=== PATIENT | female | born 1940 | race Caucasian/White ===

== ENCOUNTER 2018-05-14 10:04 | Outpatient (CLI) | payer MEDICARE ==
[2018-05-14 15:16] LABS: #Basophils 0.1 thou/uL (0.0-0.2); #Eosinphils 1.4 thou/uL (0.0-0.7); #Lymphocytes 2.2 thou/uL (1.20-3.40); #Monocytes 0.5 thou/uL (0.11-0.59); #Neutrophils 6.2 thou/uL (1.40-6.50); %Basophils 0.7 % (0.0-1.0); %Eosinophils 13.8 % (0.0-10.0); %Lymphocytes 20.9 % (21.0-51.0); %Monocytes 4.8 % (0.0-10.0); %Neutrophils 59.8 % (42.0-75.0); Hemoglobin 15.3 g/dL (12.0-16.0); Mean Corpuscular HGB CONC 33.6 g/dL (32.0-36.0); Mean Corpuscular Hemoglobin 32.1 pg (27.0-31.0); Mean Corpuscular Volume 95.6 fL (78.0-98.0); Mean Platelet Volume 8.4 fL (7.4-10.4); Platelet Count 193 thou/uL (130-400); RBC Distribution Width 12.2 % (11.5-14.5); Red Blood Cell (RBC) Count 4.76 mill/uL (4.20-5.40); White Blood Cell (WBC) Count 10.4 thou/uL (4.8-10.8)
[2018-05-14 15:23] LABS: Prothrombin Time 13.7 SEC (12.0-14.7)
[2018-05-14 15:29] LABS: Bilirubin Negative (Negative); Blood, Urine Small (Negative); Clarity CLOUDY (Clear); Glucose, Urine (Dipstick) Negative (Negative); Leukocyte Large (Negative); Nitrite Negative (Negative); Protein, Urine (Dipstick) Negative (Neg-Trace); Specific Gravity, Urine 1.004 (1.002-1.036); Urobilinogen 0.2 mg/dL (0.2-1.0); pH, Urine 6.5 (5.0-9.0)
[2018-05-14 15:32] LABS: Bacteria/HPF 1+ HPF (None Seen); Hyaline Casts/LPF 4-6 HYALINE CAST LPF (0-3 Hyaline); Pathc Cast-AUWi Flag 1.22 (0-2.49)
[2018-05-14 15:37] LABS: ALT (SGPT) 20 U/L (8-55); AST (SGOT) 30 U/L (5-34); Albumin 4.1 g/dL (3.4-4.8); Alkaline Phosphatase 63 U/L (40-150); Anion Gap 12 mmol/L (10-20); BUN (Urea Nitrogen) 11 mg/dL (9.8-20.1); Bilirubin, Total 0.9 mg/dL (0.2-1.2); Calc. Creatinine Clearance 0 mL/min (70-130); Calcium 10.9 mg/dL (7.8-10.44); Carbon Dioxide 26 mmol/L (23-31); Cardiac Risk 2.7 (Less than 4.5); Chloride 102 mmol/L (98-107); Cholesterol 112 mg/dl (< 200 Desired); Estimated GFR-MDRD 48; Globulin 3.1 g/dL (2.4-3.5); Glucose 88 mg/dL (83-110); HDL Cholesterol 41 mg/dL (>60 Neg Risk); LDL Cholesterol, Calculated 47 mg/dL; Potassium 3.9 mmol/L (3.5-5.1); Protein, Total 7.2 g/dL (6.0-8.3); Sodium 136 mmol/L (136-145); Triglycerides 122 mg/dL (Less than 150)
--- NOTE | 2018-05-14 15:57 | EKG ---
Test Reason : Blood Pressure : / mmHG Vent. Rate : 069 BPM Atrial Rate : 069 BPM P-R Int : 164 ms QRS Dur : 084 ms QT Int : 360 ms P-R-T Axes : 027 007 020 degrees QTc Int : 385 ms Normal sinus rhythm Normal ECG Confirmed by ANTONIO STANFORD ([id number]) on 05/14/2018 3:56:33 PM Referred By: IERO Confirmed By:ANTONIO STANFORD
[2018-05-14 16:14] LABS: Renal Epithelial 0-3 HPF (0-3); WBC/HPF 21-50 HPF (0-3)
== END 2018-05-14 10:05 | disposition home or self-care (01) ==
LOC: LABBT 10:04
PROVIDERS: ATTEND Orthopaedic Surgery
DX: Z01.818 Encounter for other preprocedural examination (principal); Z96.651 Presence of right artificial knee joint; E03.9 Hypothyroidism, unspecified; E78.00 Pure hypercholesterolemia, unspecified
CPT/HCPCS: 80053; 80061; 81001; 84443; 85025; 85610; 87081; 93005; 93010

== ENCOUNTER 2018-05-25 05:34 | Inpatient (IN) | payer MEDICARE ==
[2018-05-14 13:15] VITALS: BMI 39.3
[2018-05-25] MEDS ORDERED: Tranexamic Acid 1,000 MG/10 ML VIAL ONE ×2 (05:56→09:18)
[2018-05-25] MEDS ORDERED: Sodium Chloride 0.9% 100 ML ONE (05:56)
[2018-05-25] MEDS ORDERED: Clindamycin/D5W 600 mg/50 ml Premix Bag ONE (05:56)
[2018-05-25] MEDS ORDERED: Vancomycin HCl 1.5 GM in Sodium Chloride 0.9% 250 ML 300 ML IVPB SCH ×2 (06:00→18:00)
[2018-05-25] MEDS ORDERED: Lidocaine 1% (PF) 30 ML VIAL ONE (06:28)
[2018-05-25] MEDS ORDERED: Midazolam HCl 2 mg/2 ml Vial ONE (06:28)
[2018-05-25] MEDS ORDERED: Fentanyl 100 MCG/2 ML VIAL ONE ×4 (06:28→09:56)
[2018-05-25] MEDS ORDERED: Bupivacaine PF 0.5% 30 ML VIAL ONE (06:43)
[2018-05-25] MEDS ORDERED: Ondansetron PF 4 MG/2 ML Vial IVP PRN (07:13)
[2018-05-25] MEDS ORDERED: traMADol HCl 50 MG TAB PO PRN ×2 (07:13→07:19)
[2018-05-25] MEDS ORDERED: Zolpidem Tartrate 5 MG TAB PO PRN ×2 (07:13→07:19)
[2018-05-25] MEDS ORDERED: Promethazine HCl 25 MG/ML VIAL IM PRN ×3 (07:13→09:08)
[2018-05-25] MEDS ORDERED: Fentanyl 100 MCG/2 ML VIAL SLOW IVP PRN ×2 (07:18→07:19)
[2018-05-25] MEDS ORDERED: diphenhydrAMINE 25 MG CAP PO PRN (07:19)
[2018-05-25 08:42] LABS: Bilirubin Negative (Negative); Blood, Urine Negative (Negative); Clarity CLEAR (Clear); Glucose, Urine (Dipstick) Negative (Negative); Leukocyte Negative (Negative); Nitrite Negative (Negative); Protein, Urine (Dipstick) Negative (Neg-Trace); Specific Gravity, Urine 1.009 (1.002-1.036); Urobilinogen 0.2 mg/dL (0.2-1.0); pH, Urine 6.5 (5.0-9.0)
[2018-05-25 08:44] LABS: Urine Culture Reflex No No
[2018-05-25] MEDS ORDERED: Promethazine HCl 25 MG/ML VIAL SLOW IVP PRN (09:08)
[2018-05-25] MEDS ORDERED: Ondansetron HCl/PF 4 MG/2 ML Vial IVP PRN (09:08)
[2018-05-25] MEDS ORDERED: HYDROmorphone 2 MG/ML VIAL SLOW IVP PRN (09:08)
[2018-05-25] MEDS ORDERED: HYDROmorphone 2 MG/ML VIAL ONE (09:18)
[2018-05-25] MEDS ORDERED: Scopolamine 1.5 mg/72 hour Patch ONE (09:50)
[2018-05-25] MEDS ORDERED: Ondansetron PF 4 MG/2 ML Vial ONE (09:51)
[2018-05-25] MEDS ORDERED: PHENYLEPHRINE-NS 100 MCG/ML 10 ML SYRINGE ONE (09:51)
[2018-05-25] MEDS ORDERED: ePHEDrine 50 MG/ML VIAL ONE (09:51)
[2018-05-25] MEDS ORDERED: Calcium Chloride 1 GM/10 ML Abboject SYRINGE ONE (09:51)
[2018-05-25] MEDS ORDERED: PROPOFOL 200 MG/20 ML VIAL ONE (09:51)
[2018-05-25] MEDS ORDERED: Ropivacaine 0.5% HCl/PF (150 MG/30 ML VIAL) ONE (10:38)
[2018-05-25] MEDS ORDERED: Ropivacaine 0.2% HCl/PF (40 MG/20 ML VIAL) ONE (10:38)
--- NOTE | 2018-05-25 11:04 | OP ---
DATE OF PROCEDURE: 05/25/2018 PREOPERATIVE DIAGNOSIS: Right knee osteoarthritis. POSTOPERATIVE DIAGNOSIS: Right knee osteoarthritis. PROCEDURE PERFORMED: Right total knee replacement using Hi-Midia pinless navigation. CALENDER WIND UP TENDER: Mike Zapien PA-C. BLOOD LOSS: Minimal. COMPLICATIONS: None. ANESTHESIA: She had a general anesthetic as well as a preoperative block. DISPOSITION: She did go to recovery room in stable condition. IMPLANTS: There were no complications. IMPLANTS: To the right knee, triathlon total knee system, the femur size 3 cruciate retaining, the tibial base plate was a size 3 primary base plate, plastic was a 3 x 9 mm CS X3 plastic, and the patella was A29 x 9 X3 patella. INDICATIONS: Alix is a 77-year-old, long-term patient of mine, who has been dealing with knee arthritis for years and at this time has failed her nonoperative treatment. At this time, she wished to have her knee replaced. PROCEDURE IN DETAIL: After all appropriate consent forms were explained and signed, the patient was taken back to the operating room and at this time was given general anesthetic. Once the level of anesthesia was appropriate, a well-padded tourniquet was placed on the right leg, and the leg was then prepped and draped in standard surgical fashion. The limb was exsanguinated and tourniquet taken up to 300 mmHg. Midline incision was made with a 10 blade down through the skin and subcutaneous tissue. Bovie electrocautery was used to coagulate any brisk venous bleeding. A new blade was used to make a medial parapatellar arthrotomy. Small subperiosteal release was performed medially and excess fat pad was removed. The knee was flexed up to gain access to the femur. The femur was navigated and distal femoral resection was made. Epicondylar access was used to align our sizing jig and this was pinned in place. We sized our femur to be a 3, cruciate retaining. 4:1 cutting block was applied and pinned. Anterior and posterior chamfer cuts were then made. We navigated out our proximal tibia and made our proximal tibial resection. Spreaders were used to remove any posterior osteophytes off the back of the femur as well as remaining meniscal tissue. A long alignment jr was then used to achieve correct rotation of our tibial baseplate and a size 3 primary baseplate was chosen. This was pinned in place. We trialed the polyethylene and a 3 x 9 mm CS X3 plastic polyethylene gave us full extension and good stability throughout range of motion. Two towel clips and a saw were used to cut our patella. Three lug nuts were drilled and A29 x 9 X3 patella was trialed which sat nicely in the trochlear groove. We then drilled our femur and punched our tibia. All components were removed. The knee was thoroughly irrigated and dried. Cement was mixed into the cement gun on the back table. Components were then placed. The knee was held out in full extension until the cement had dried. All excess bone cement was removed. Multiple #2 Vicryl stitches as well as a Quill were used to close our extensor mechanism. 0 Quill followed by a running Monoderm was then used to close the skin. Surgicel glue was then used on the skin. Once this had dried, soft tissue dressing was applied to the limb, tourniquet was let down, and the toes pinked up nicely. The patient was then awakened and taken to the recovery room in stable condition. All counts were correct at the end of the case. The patient did receive preoperative IV antibiotics. The patient was injected with Exparel for postoperative pain relief. Job ID: [id number]
[2018-05-25] MEDS: Loratadine 10 MG TAB PO SCH (11:48)
[2018-05-25] MEDS: Multivitamin W/ Minerals 1 TAB PO SCH (11:48)
[2018-05-25] MEDS: Estradiol 1 MG TAB PO SCH (11:48)
[2018-05-25] MEDS: Aspirin 81 mg Enteric Coated Tablet PO SCH ×2 (11:48→19:57)
[2018-05-25] MEDS: Ubidecarenone 50 MG CAP PO SCH (11:49)
[2018-05-25] MEDS: Thyroid 30 MG TAB PO SCH (11:49)
[2018-05-25] MEDS ORDERED: Ketorolac Tromethamine 30 MG/ML VIAL IVP SCH (12:00)
[2018-05-25] MEDS: Clindamycin/D5W 900 MG in Premix Bag 1 BAG IVPB SCH ×2 (13:22→19:57)
[2018-05-25] MEDS: HYDROmorphone 2 MG TAB PO PRN ×2 (14:32→18:38)
[2018-05-25] MEDS: Sodium Chloride 0.9% 1,000 ML IV SCH ×2 (15:42→16:51)
--- NOTE | 2018-05-25 15:54 | PDOC.PN ---
- Subjective Encounter Start Date: 05/25/18 Encounter Start Time: 15:52 Subjective: s/p R TKR.working w PT.pain in operated knee -: no N/Vno SOB/palpitations /CP - Objective MAR Reviewed: Yes Vital Signs & Weight: Vital Signs (12 hours) Temp Pulse Resp BP Pulse Ox 05/25/18 11:29 97.5 F L 83 18 130/70 95 Weight Weight 198 lb Phys Exam - Physical Examination Constitutional: NAD HEENT: PERRLA, moist MMs, sclera anicteric, oral pharynx no lesions Neck: no nodes, no JVD, supple, full ROM Respiratory: no wheezing, no rales, no rhonchi, clear to auscultation bilateral Cardiovascular: RRR, no significant murmur Gastrointestinal: soft, non-tender, no distention, positive bowel sounds Musculoskeletal: no edema, pulses present Neurological: non-focal, normal sensation, moves all 4 limbs Psychiatric: normal affect, A&O x 3 Skin: no rash Dx/Plan (1) Paroxysmal atrial fibrillation Code(s): I48.0 - PAROXYSMAL ATRIAL FIBRILLATION Status: Chronic Comment: NSR (2) S/P CABG x 1 Code(s): Z95.1 - PRESENCE OF AORTOCORONARY BYPASS GRAFT Status: Chronic (3) Coronary arteriosclerosis in [place] artery Code(s): I25.10 - ATHSCL HEART DISEASE OF [place] CORONARY ARTERY W/O ANG PCTRS Status: Chronic Comment: Status post CABG, thus far doing well. PT/OT, mobilize as able. (4) Hyperlipidemia Code(s): E78.5 - HYPERLIPIDEMIA, UNSPECIFIED Status: Chronic Comment: Resume crestor. (5) Hypertension Code(s): I10 - ESSENTIAL (PRIMARY) HYPERTENSION Status: Chronic Comment: controlled (6) S/P total knee replacement Code(s): Z96.659 - PRESENCE OF UNSPECIFIED ARTIFICIAL KNEE JOINT Status: Acute Qualifiers: Laterality: right Qualified Code(s): Z96.651 - Presence of right artificial knee joint - Plan DVT proph w/SCDs cont home meds as below. reviewed. -: HD stable.Add GI prophylaxis. cont ASA BID for DVT prophylaxis -: cont OT,PT. -: AM labs.add prn antihypertensives.monitor -: urine Cx.IM team will follow * . Review of Systems - Medications/Allergies Allergies/Adverse Reactions: Allergies Allergy/AdvReac Type Severity Reaction Status Date / Time Sulfa (Sulfonamide Allergy Severe Verified 05/14/18 13:17 Antibiotics) acetaminophen [From Tylenol] Allergy Verified 05/14/18 13:17 ciprofloxacin HCl Allergy Verified 05/14/18 13:17 [From Cipro] gabapentin [From Neurontin] Allergy Verified 05/14/18 13:17 ibuprofen Allergy use Verified 05/14/18 13:17 sparingly, causes kidney failure meperidine HCl [From Demerol] Allergy Verified 05/14/18 13:17 Penicillins Allergy Verified 05/14/18 13:17 pregabalin [From Lyrica] Allergy Verified 05/14/18 13:17 Ekvcyxf-Sit-Abr Reductase Allergy Verified 05/14/18 13:17 Inhibitor sweeteners Allergy hypoglycemi Uncoded 05/14/18 13:17 c Medications: Current Medications Ascorbic Acid (Vitamin C) 1,000 mg PO DAILY [facility] Aspirin (Ecotrin) 81 mg PO BID [facility] Last Admin: 05/25/18 11:48 Dose: Not Given Cholecalciferol (Vitamin D3) 1,000 units PO DAILY [facility] Last Admin: 05/25/18 11:48 Dose: Not Given Coenzyme Q10 (Coenzyme Q10) 200 mg PO DAILY [facility] Last Admin: 05/25/18 11:49 Dose: Not Given Diphenhydramine HCl (Benadryl) 25 mg PO Q6H PRN PRN Reason: Itching Estradiol (Estrace) 0.5 mg PO MoTh@0900 [facility] Last Admin: 05/25/18 11:48 Dose: Not Given Fentanyl (Sublimaze) 50 mcg SLOW IVP Q1H PRN PRN Reason: breakthrough pain Last Admin: 05/25/18 12:07 Dose: 50 mcg Fentanyl (Sublimaze) 100 mcg SLOW IVP Q1H PRN PRN Reason: Severe Pain (7-10) Last Admin: 05/25/18 13:21 Dose: 100 mcg Ferrous Gluconate (Fergon) 324 mg PO BID [facility] Fish Oil (Fish Oil) 1,000 mg PO HS [facility] Hydromorphone HCl (Dilaudid) 4 mg PO Q4H PRN PRN Reason: SEVERE Pain 7-10 Last Admin: 05/25/18 14:32 Dose: 4 mg Ropivacaine 250 ml/ Device 250 mls @ 10 mls/hr NERVE BLCK INF [facility] Clindamycin Phosphate/Dextrose (900 mg/ Device) 50 mls @ 100 mls/hr IVPB Q6H [facility] Stop: 05/25/18 19:29 Last Admin: 05/25/18 13:22 Dose: 50 mls Sodium Chloride (Normal Saline 0.9%) 1,000 mls @ 100 mls/hr IV .Q10H [facility] Last Admin: 05/25/18 15:42 Dose: Not Given Vancomycin HCl 1.5 gm/ Sodium (Chloride) 300 mls @ 200 mls/hr IVPB 1800 [facility] Stop: 05/25/18 19:29 Iron/Minerals/Multivitamins (Theragran M) 1 tab PO DAILY [facility] Last Admin: 05/25/18 11:48 Dose: Not Given Lisinopril (Zestril) 5 mg PO HS [facility] Loratadine (Claritin) 10 mg PO DAILY [facility] Last Admin: 05/25/18 11:48 Dose: Not Given Metoprolol Succinate (Toprol Xl) 25 mg PO DAILY [facility] Last Admin: 05/25/18 11:48 Dose: Not Given Ondansetron HCl (Zofran) 4 mg IVP Q6H PRN PRN Reason: Nausea/Vomiting Polyethylene Glycol (Miralax) 17 gm PO DAILY PRN PRN Reason: Constipation Promethazine HCl (Phenergan) 12.5 mg IM Q4H PRN PRN Reason: Nausea/Vomiting Rosuvastatin Calcium (Crestor) 10 mg PO HS [facility] Senna/Docusate Sodium (Senokot S) 2 tab PO BID [facility] Sodium Chloride (Flush - Normal Saline) 10 ml IVF PRN PRN PRN Reason: Saline Flush Thyroid ([place] Thyroid) 30 mg PO DAILY [facility] Last Admin: 05/25/18 11:49 Dose: Not Given Tramadol HCl (Ultram) 50 mg PO Q6H PRN PRN Reason: Mild Pain (1-3) Tramadol HCl (Ultram) 100 mg PO Q6H PRN PRN Reason: Moderate Pain 4-6 Zolpidem Tartrate (Ambien) 5 mg PO HSPRN PRN PRN Reason: Insomnia
[2018-05-25] MEDS ORDERED: hydrALAZINE 20 MG/ML VIAL SLOW IVP PRN (17:16)
[2018-05-25] MEDS ORDERED: cloNIDine 0.1 MG TAB PO PRN (17:16)
[2018-05-25] MEDS: Famotidine 20 MG TAB PO SCH (19:57)
[2018-05-25] MEDS: Fish Oil 1,000 MG CAP PO SCH (19:57)
[2018-05-25] MEDS: Lisinopril 5 MG TAB PO SCH (19:58)
[2018-05-25] MEDS: Rosuvastatin 10 MG TAB PO SCH (19:58)
[2018-05-26] MEDS: HYDROmorphone 2 MG TAB PO PRN ×6 (00:43→23:34)
[2018-05-26 06:09] LABS: Hemoglobin 13.1 g/dL (12.0-16.0); Mean Corpuscular HGB CONC 33.1 g/dL (32.0-36.0); Mean Corpuscular Hemoglobin 31.5 pg (27.0-31.0); Mean Corpuscular Volume 95.1 fL (78.0-98.0); Mean Platelet Volume 8.4 fL (7.4-10.4); Platelet Count 178 thou/uL (130-400); RBC Distribution Width 12.1 % (11.5-14.5); Red Blood Cell (RBC) Count 4.16 mill/uL (4.20-5.40); White Blood Cell (WBC) Count 15.2 thou/uL (4.8-10.8)
[2018-05-26 06:23] LABS: Anion Gap 11 mmol/L (10-20); BUN (Urea Nitrogen) 13 mg/dL (9.8-20.1); Calc. Creatinine Clearance 65 mL/min (70-130); Carbon Dioxide 21 mmol/L (23-31); Chloride 97 mmol/L (98-107); Estimated GFR-MDRD 52; Glucose 142 mg/dL (83-110); Potassium 4.7 mmol/L (3.5-5.1); Sodium 124 mmol/L (136-145)
[2018-05-26] MEDS: Sodium Chloride 0.9% 1,000 ML IV SCH (06:35)
[2018-05-26] MEDS: Ubidecarenone 50 MG CAP PO SCH (07:46)
[2018-05-26] MEDS: Famotidine 20 MG TAB PO SCH ×2 (07:48→20:43)
[2018-05-26] MEDS: Senokot S 8.6-50 MG TAB PO SCH ×2 (07:48→20:45)
[2018-05-26] MEDS: Ascorbic Acid 500 mg Chewable Tablet PO SCH (07:48)
[2018-05-26] MEDS: Loratadine 10 MG TAB PO SCH (07:49)
[2018-05-26] MEDS: Multivitamin W/ Minerals 1 TAB PO SCH (07:49)
[2018-05-26] MEDS: Ferrous Gluconate 324 MG TAB PO SCH ×2 (07:50→20:43)
[2018-05-26] MEDS: Aspirin 81 mg Enteric Coated Tablet PO SCH ×2 (07:50→20:43)
--- NOTE | 2018-05-26 09:55 | PRG ---
DATE OF SERVICE: 05/26/2018 SUBJECTIVE: Ms. Thomson is a 77-year-old white female, postop day #1 from a right total knee arthroplasty. She is doing relatively well. She has very little in the way of complaints. Pain is relatively well controlled. She ambulated approximately 8 feet yesterday evening. OBJECTIVE: VITAL SIGNS: Temperature 94, pulse 82, respiratory rate 20, nonlabored, blood pressure is 126/71. GENERAL: She is alert and oriented to person, place, time, situation, grossly nonfocal, appropriate with examiner, in relatively good mood. EXTREMITIES: Incision is clean and closed. She is neurovascular intact in both lower extremities. She has good dorsiflexion, inversion, eversion. There is no strike through at the incision. LABORATORY DATA: Hemoglobin, hematocrit 13.1 and 39.6. IMPRESSION: A 77-year-old female, postoperative day #1 right total knee arthroplasty, doing very well. PLAN: Continue current management. Probable discharge home tomorrow. I believe she has relatively good support. Job ID: [id number]
[2018-05-26] MEDS: Ropivacaine HCl/PF 250 ML in Premix Bag 1 BAG NERVE BLCK SCH (10:47)
[2018-05-26] MEDS: Thyroid 30 MG TAB PO SCH (12:37)
--- NOTE | 2018-05-26 12:53 | PDOC.PN ---
- Subjective Encounter Start Date: 05/26/18 Encounter Start Time: 12:52 Subjective: feels Ok but still struggling w poor appetite.constipated -: pain poorly controlled. no N/V.no abd pain - Objective MAR Reviewed: Yes Vital Signs & Weight: Vital Signs (12 hours) Temp Pulse Resp BP Pulse Ox 05/26/18 08:00 97.3 F L 78 12 128/68 95 05/26/18 04:26 98.4 F 82 20 126/71 94 L Weight Admit Weight 198 lb Weight 198 lb I&O: 05/25/18 05/26/18 05/27/18 06:59 06:59 06:59 Intake Total 1030 Output Total 1450 Balance -420 Result Diagrams: 05/26/18 05:34 05/26/18 05:34 Phys Exam - Physical Examination Constitutional: NAD HEENT: PERRLA, moist MMs, sclera anicteric, oral pharynx no lesions Neck: no nodes, no JVD, supple, full ROM Respiratory: no wheezing, no rales, no rhonchi, clear to auscultation bilateral Cardiovascular: RRR, no significant murmur Gastrointestinal: soft, non-tender, no distention, positive bowel sounds Musculoskeletal: no edema, pulses present Neurological: non-focal, normal sensation, moves all 4 limbs Psychiatric: normal affect, A&O x 3 Skin: no rash Dx/Plan (1) Hyponatremia Code(s): E87.1 - HYPO-OSMOLALITY AND HYPONATREMIA Status: Acute (2) Constipation Code(s): K59.00 - CONSTIPATION, UNSPECIFIED Status: Acute Comment: Postoperative plus narcotic related, worsened. Added daily miralax and citrucel which she uses at home. Daily stool softeners also added by Dr. Osorio. Ambulate/mobilize. (3) Paroxysmal atrial fibrillation Code(s): I48.0 - PAROXYSMAL ATRIAL FIBRILLATION Status: Chronic Comment: NSR (4) S/P CABG x 1 Code(s): Z95.1 - PRESENCE OF AORTOCORONARY BYPASS GRAFT Status: Chronic (5) Coronary arteriosclerosis in [place] artery Code(s): I25.10 - ATHSCL HEART DISEASE OF [place] CORONARY ARTERY W/O ANG PCTRS Status: Chronic Comment: Status post CABG, thus far doing well. PT/OT, mobilize as able. (6) Hyperlipidemia Code(s): E78.5 - HYPERLIPIDEMIA, UNSPECIFIED Status: Chronic Comment: Resume crestor. (7) Hypertension Code(s): I10 - ESSENTIAL (PRIMARY) HYPERTENSION Status: Chronic Comment: controlled (8) S/P total knee replacement Code(s): Z96.659 - PRESENCE OF UNSPECIFIED ARTIFICIAL KNEE JOINT Status: Acute Qualifiers: Laterality: right Qualified Code(s): Z96.651 - Presence of right artificial knee joint - Plan plan discussed w/ family, DVT proph w/SCDs low sodium likley from poor PO intake.will get nephrology consult -: add Miralax.encouraged oral intake -: home meds as below -: ASA BID for DVT prophylaxis * . Review of Systems - Review of Systems Constitutional: weakness, malaise. negative: fever, chills, sweats, other Respiratory: negative: Cough, Dry, Shortness of Breath, Hemoptysis, SOB with Excertion, Pleuritic Pain, Sputum, Wheezing Cardiovascular: negative: chest pain, palpitations, orthopnea, paroxysmal nocturnal dyspnea, edema, light headedness, other Gastrointestinal: Constipation. negative: Nausea, Vomiting, Abdominal Pain, Diarrhea, Melena, Hematochezia, Other Genitourinary: negative: Dysuria, Frequency, Incontinence, Hematuria, Retention , Other Musculoskeletal: negative: Neck Pain, Shoulder Pain, Arm Pain, Back Pain, Hand Pain, Leg Pain, Foot Pain, Other Skin: negative: Rash, Lesions, Jacob, Bruising, Other Neurological: negative: Weakness, Numbness, Incoordination, Change in Speech, Confusion, Seizures, Other - Medications/Allergies Allergies/Adverse Reactions: Allergies Allergy/AdvReac Type Severity Reaction Status Date / Time Sulfa (Sulfonamide Allergy Severe Verified 05/14/18 13:17 Antibiotics) acetaminophen [From Tylenol] Allergy Verified 05/14/18 13:17 ciprofloxacin HCl Allergy Verified 05/14/18 13:17 [From Cipro] gabapentin [From Neurontin] Allergy Verified 05/14/18 13:17 ibuprofen Allergy use Verified 05/14/18 13:17 sparingly, causes kidney failure meperidine HCl [From Demerol] Allergy Verified 05/14/18 13:17 Penicillins Allergy Verified 05/14/18 13:17 pregabalin [From Lyrica] Allergy Verified 05/14/18 13:17 Bmqntxe-Izf-Pte Reductase Allergy Verified 05/14/18 13:17 Inhibitor sweeteners Allergy hypoglycemi Uncoded 05/14/18 13:17 c Medications: Current Medications Ascorbic Acid (Vitamin C) 1,000 mg PO DAILY [facility] Last Admin: 05/26/18 07:48 Dose: 1,000 mg Aspirin (Ecotrin) 81 mg PO BID [facility] Last Admin: 05/26/18 07:50 Dose: 81 mg Cholecalciferol (Vitamin D3) 1,000 units PO DAILY [facility] Last Admin: 05/26/18 07:47 Dose: 1,000 units Clonidine (Catapres) 0.1 mg PO Q4H PRN PRN Reason: SBP>160 Coenzyme Q10 (Coenzyme Q10) 200 mg PO DAILY [facility] Last Admin: 05/26/18 07:46 Dose: 200 mg Diphenhydramine HCl (Benadryl) 25 mg PO Q6H PRN PRN Reason: Itching Estradiol (Estrace) 0.5 mg PO MoTh@0900 [facility] Last Admin: 05/25/18 11:48 Dose: Not Given Famotidine (Pepcid) 20 mg PO BID [facility] Last Admin: 05/26/18 07:48 Dose: 20 mg Fentanyl (Sublimaze) 50 mcg SLOW IVP Q1H PRN PRN Reason: breakthrough pain Last Admin: 05/25/18 12:07 Dose: 50 mcg Fentanyl (Sublimaze) 100 mcg SLOW IVP Q1H PRN PRN Reason: Severe Pain (7-10) Last Admin: 05/25/18 13:21 Dose: 100 mcg Ferrous Gluconate (Fergon) 324 mg PO BID [facility] Last Admin: 05/26/18 07:50 Dose: 324 mg Fish Oil (Fish Oil) 1,000 mg PO HS [facility] Last Admin: 05/25/18 19:57 Dose: 1,000 mg Hydralazine HCl (Apresoline) 10 mg SLOW IVP Q4H PRN PRN Reason: SBP>170 Hydromorphone HCl (Dilaudid) 4 mg PO Q4H PRN PRN Reason: SEVERE Pain 7-10 Last Admin: 05/26/18 12:37 Dose: 4 mg Ropivacaine 250 ml/ Device 250 mls @ 10 mls/hr NERVE BLCK INF [facility] Last Admin: 05/26/18 10:47 Dose: 250 mls Iron/Minerals/Multivitamins (Theragran M) 1 tab PO DAILY [facility] Last Admin: 05/26/18 07:49 Dose: 1 tab Lisinopril (Zestril) 5 mg PO HS [facility] Last Admin: 05/25/18 19:58 Dose: 5 mg Loratadine (Claritin) 10 mg PO DAILY [facility] Last Admin: 05/26/18 07:49 Dose: 10 mg Metoprolol Succinate (Toprol Xl) 25 mg PO DAILY [facility] Last Admin: 05/26/18 07:47 Dose: 25 mg Ondansetron HCl (Zofran) 4 mg IVP Q6H PRN PRN Reason: Nausea/Vomiting Polyethylene Glycol (Miralax) 17 gm PO DAILY PRN PRN Reason: Constipation Promethazine HCl (Phenergan) 12.5 mg IM Q4H PRN PRN Reason: Nausea/Vomiting Rosuvastatin Calcium (Crestor) 10 mg PO HS [facility] Last Admin: 05/25/18 19:58 Dose: 10 mg Senna/Docusate Sodium (Senokot S) 2 tab PO BID [facility] Last Admin: 05/26/18 07:48 Dose: 2 tab Sodium Chloride (Flush - Normal Saline) 10 ml IVF PRN PRN PRN Reason: Saline Flush Thyroid ([place] Thyroid) 30 mg PO DAILY [facility] Last Admin: 05/26/18 12:37 Dose: 30 mg Tramadol HCl (Ultram) 50 mg PO Q6H PRN PRN Reason: Mild Pain (1-3) Tramadol HCl (Ultram) 100 mg PO Q6H PRN PRN Reason: Moderate Pain 4-6 Zolpidem Tartrate (Ambien) 5 mg PO HSPRN PRN PRN Reason: Insomnia
[2018-05-26] MEDS ORDERED: Polyethylene Glycol 3350 17 GM Packet PO SCH (14:00)
[2018-05-26] MEDS ORDERED: Tolvaptan 15 MG TAB PO SCH (17:30)
--- NOTE | 2018-05-26 19:24 | CON ---
DATE OF CONSULTATION: 05/26/2018 CONSULTING PHYSICIAN: Dr. Sandy. REASON FOR CONSULTATION: Hyponatremia. REASON FOR ADMISSION: Knee surgery. HISTORY OF PRESENT ILLNESS: This is a 77-year-old white female with history of coronary artery disease, hypertension, and hyperlipidemia, who came to the hospital with above complaints and was found to have sodium of 124, baseline is around 135 to 136. The patient denies any complaints. No nausea or vomiting. No chest pain. No diarrhea. PAST MEDICAL HISTORY: Positive for coronary artery disease, hypothyroidism, chronic back pain, hypertension, hyperlipidemia, and obesity. PAST SURGICAL HISTORY: Multiple back surgeries, cholecystectomy, hysterectomy, appendectomy, foot surgery, and gastric surgery. HOME MEDICATIONS: Include: 1. Fish oil. 2. Vitamin D3. 3. Lisinopril. 4. Dilaudid. 5. [place] Thyroid. 6. MiraLAX. 7. Toprol. 8. Vitamin E. ALLERGIES: 1. SULFA. 2. CIPRO. 3. LEVAQUIN. 4. IBUPROFEN. 5. MEPERIDINE. SOCIAL HISTORY: No smoking, alcohol, or illicit drug abuse. FAMILY HISTORY: No history of any kidney disease. REVIEW OF SYSTEMS: CONSTITUTIONAL: Negative for weight loss or gain, ability to conduct usual activities. SKIN: Negative for rash, itching. EYES: Negative for double vision, pain. ENT/MOUTH: Negative for nose bleeding, neck stiffness, pain, tenderness. CARDIOVASCULAR: Negative for palpitations, dyspnea on exertion, orthopnea. RESPIRATORY: Negative for shortness of breath, wheezing, cough, hemoptysis, fever or night sweats. GASTROINTESTINAL: Negative for poor appetite, abdominal pain, heartburn, nausea, vomiting, constipation, or diarrhea. GENITOURINARY: Negative for urgency, frequency, dysuria, nocturia. MUSCULOSKELETAL: Negative for pain, swelling. NEUROLOGIC/PSYCHIATRIC: Negative for anxiety, depression. ALLERGY/IMMUNOLOGIC: Negative for skin rash, bleeding tendency. PHYSICAL EXAMINATION: GENERAL: This is a well-built female, in no apparent distress. VITAL SIGNS: Temperature 97.9, pulse 81, respiratory rate 18, blood pressure 124/70. HEENT: Atraumatic and normocephalic. Oral mucosa is moist. NECK: Supple. CARDIOVASCULAR: S1 and S2 heard. Rate and rhythm are regular. RESPIRATORY: Clear. GI: Abdomen is soft. MUSCULOSKELETAL: 1+ edema. DERMATOLOGIC: No skin rash. NEUROLOGIC: Alert and awake. PSYCHIATRIC: Mood and affect are normal. LABORATORY DATA: Sodium is 124, potassium is 4.7, BUN is 13, creatinine is 1.0. ASSESSMENT: 1. Hyponatremia. We will check urine studies. Plan is to start on tolvaptan. 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 2. Hypochloremia. 3. Metabolic acidosis. 4. Edema, controlled. 5. Hypertension, stable. PLAN: Plan is to start her on tolvaptan . Monitor sodium closely. Follow urine studies. Job ID: [id number]
[2018-05-26] MEDS: Fish Oil 1,000 MG CAP PO SCH (20:43)
[2018-05-26] MEDS: Lisinopril 5 MG TAB PO SCH (20:44)
[2018-05-26] MEDS: Rosuvastatin 10 MG TAB PO SCH (20:45)
[2018-05-26 21:10] LABS: Potassium 4.3 mmol/L (3.5-5.1)
[2018-05-27] MEDS: HYDROmorphone 2 MG TAB PO PRN ×4 (05:45→19:17)
[2018-05-27 05:58] LABS: Hemoglobin 13.1 g/dL (12.0-16.0); Mean Corpuscular HGB CONC 33.4 g/dL (32.0-36.0); Mean Corpuscular Hemoglobin 31.4 pg (27.0-31.0); Mean Corpuscular Volume 94.1 fL (78.0-98.0); Mean Platelet Volume 8.7 fL (7.4-10.4); Platelet Count 169 thou/uL (130-400); RBC Distribution Width 12.1 % (11.5-14.5); Red Blood Cell (RBC) Count 4.18 mill/uL (4.20-5.40)
[2018-05-27 07:36] LABS: Anion Gap 12 mmol/L (10-20); BUN (Urea Nitrogen) 13 mg/dL (9.8-20.1); Calc. Creatinine Clearance 63 mL/min (70-130); Carbon Dioxide 23 mmol/L (23-31); Chloride 101 mmol/L (98-107); Estimated GFR-MDRD 49; Glucose 148 mg/dL (83-110); Potassium 4.1 mmol/L (3.5-5.1); Sodium 132 mmol/L (136-145)
[2018-05-27] MEDS: Senokot S 8.6-50 MG TAB PO SCH ×2 (09:16→22:24)
[2018-05-27] MEDS: Multivitamin W/ Minerals 1 TAB PO SCH (09:17)
[2018-05-27] MEDS: Ubidecarenone 50 MG CAP PO SCH (09:17)
[2018-05-27] MEDS: Famotidine 20 MG TAB PO SCH ×2 (09:17→22:22)
[2018-05-27] MEDS: Ferrous Gluconate 324 MG TAB PO SCH ×2 (09:17→22:23)
[2018-05-27] MEDS: Ascorbic Acid 500 mg Chewable Tablet PO SCH (09:17)
[2018-05-27] MEDS: Aspirin 81 mg Enteric Coated Tablet PO SCH ×2 (09:18→22:23)
[2018-05-27] MEDS: Loratadine 10 MG TAB PO SCH (09:18)
[2018-05-27] MEDS: Polyethylene Glycol 3350 17 GM Packet PO PRN (12:03)
[2018-05-27] MEDS: Thyroid 30 MG TAB PO SCH (12:03)
--- NOTE | 2018-05-27 12:40 | RAD ---
CHEST ONE VIEW: Comparison: 04-13-15 History: Leukocytosis. FINDINGS: There are sternotomy wires. Normal cardiac silhouette. The pulmonary vessels and hilum are normal. Co stophrenic angles are clear. Lung volumes are diminished, likely due to a poor inspiratory effort. No masses or consolidation. No pneumothorax or acute osseous abnormalities. There appear to be truncati on of the distal left clavicle. Cervical fusion hardware is noted. IMPRESSION: No acute cardiopulmonary process. POS: [facility]
[2018-05-27 14:46] LABS: Anion Gap 12 mmol/L (10-20); BUN (Urea Nitrogen) 14 mg/dL (9.8-20.1); Calc. Creatinine Clearance 60 mL/min (70-130); Carbon Dioxide 25 mmol/L (23-31); Chloride 101 mmol/L (98-107); Estimated GFR-MDRD 46; Glucose 186 mg/dL (83-110); Potassium 4.1 mmol/L (3.5-5.1); Sodium 134 mmol/L (136-145)
--- NOTE | 2018-05-27 15:47 | PDOC.EVN ---
Event Note - Event Note Event Note: chart reviewed.went to see pt but she was getting PT.will attempt later if time permits Worsening leucocytosis but afebrile.UA clean .Cx negative so far CXr ordered and dose not show any acute changes.will recheck CBC in am Sodium better.Management as per nephrology HD stable will follow
--- NOTE | 2018-05-27 17:15 | PRG ---
DATE OF SERVICE: 05/27/2018 SUBJECTIVE: Patient was seen and examined at bedside and overnight events noted. Patient denies any shortness of breath or chest pain or palpitation. No history of nausea or vomiting or diarrhea or fever or chills or cramps. OBJECTIVE: GENERAL: This is a well-built female, in no apparent distress. VITAL SIGNS: Temperature . Heart rate 84. Respiratory rate 16. Blood pressure 159/73. HEENT: Atraumatic, normocephalic. Oral mucosa is moist NECK: Supple. CARDIOVASCULAR: S1, S2 heard. Rate and rhythm regular. RESPIRATORY: Clear to auscultation. GASTROINTESTINAL: Abdomen is soft. MUSCULOSKELETAL: No tenderness. No edema. DERMATOLOGIC: No skin rash. NEUROLOGIC: Alert and awake and oriented X3. No focal neurologic deficits. Moving all the extremities. PSYCHIATRIC: Mood and affect normal. LABORATORY DATA: Sodium is 134, potassium 4.1, creatinine is 1.14. ASSESSMENT AND PLAN: 1. Hyponatremia, most likely syndrome of inappropriate antidiuretic hormone secretion. Sodium is corrected . 2. Hypochloremia. 3. Metabolic acidosis. 4. Edema, controlled. 5. Hypertension, stable. We will continue to monitor. Job ID: [id number]
[2018-05-27] MEDS: Rosuvastatin 10 MG TAB PO SCH (22:21)
[2018-05-27] MEDS: Fish Oil 1,000 MG CAP PO SCH (22:21)
[2018-05-27] MEDS: Lisinopril 5 MG TAB PO SCH (22:22)
[2018-05-27] MEDS: traMADol HCl 50 MG TAB PO PRN (22:23)
[2018-05-27] MEDS: Ropivacaine HCl/PF 250 ML in Premix Bag 1 BAG NERVE BLCK SCH (22:55)
[2018-05-28] MEDS: HYDROmorphone 2 MG TAB PO PRN ×5 (02:54→21:58)
[2018-05-28 05:01] LABS: Mean Corpuscular HGB CONC 32.9 g/dL (32.0-36.0); Mean Corpuscular Hemoglobin 31.5 pg (27.0-31.0); Mean Corpuscular Volume 95.6 fL (78.0-98.0); Mean Platelet Volume 9.2 fL (7.4-10.4); Platelet Count 176 thou/uL (130-400); RBC Distribution Width 12.3 % (11.5-14.5); Red Blood Cell (RBC) Count 4.14 mill/uL (4.20-5.40); White Blood Cell (WBC) Count 14.8 thou/uL (4.8-10.8)
[2018-05-28 05:18] LABS: Anion Gap 10 mmol/L (10-20); BUN (Urea Nitrogen) 17 mg/dL (9.8-20.1); Calc. Creatinine Clearance 62 mL/min (70-130); Calcium 10.1 mg/dL (7.8-10.44); Carbon Dioxide 30 mmol/L (23-31); Chloride 99 mmol/L (98-107); Estimated GFR-MDRD 49; Glucose 121 mg/dL (83-110); Potassium 4.1 mmol/L (3.5-5.1); Sodium 135 mmol/L (136-145)
[2018-05-28] MEDS: Famotidine 20 MG TAB PO SCH ×2 (08:34→19:59)
[2018-05-28] MEDS: Ferrous Gluconate 324 MG TAB PO SCH (08:34)
[2018-05-28] MEDS: Multivitamin W/ Minerals 1 TAB PO SCH (08:34)
[2018-05-28] MEDS: Ubidecarenone 50 MG CAP PO SCH (08:34)
[2018-05-28] MEDS: Senokot S 8.6-50 MG TAB PO SCH ×2 (08:34→19:59)
[2018-05-28] MEDS: Ascorbic Acid 500 mg Chewable Tablet PO SCH (08:34)
[2018-05-28] MEDS: Loratadine 10 MG TAB PO SCH (08:34)
[2018-05-28] MEDS: Polyethylene Glycol 3350 17 GM Packet PO PRN (08:34)
[2018-05-28] MEDS: Estradiol 1 MG TAB PO SCH (08:35)
[2018-05-28] MEDS: Aspirin 81 mg Enteric Coated Tablet PO SCH ×2 (08:35→19:59)
[2018-05-28] MEDS: Thyroid 30 MG TAB PO SCH (09:27)
[2018-05-28] MEDS: Ondansetron PF 4 MG/2 ML Vial IVP PRN ×2 (09:50→22:45)
--- NOTE | 2018-05-28 12:53 | PRG ---
DATE OF SERVICE: 05/28/2018 SUBJECTIVE: Alix is a 77-year-old female, who is 3 days postop from a right total knee arthroplasty. Her chief complaint is nausea today. She actually vomited once earlier this morning. Her therapy notes demonstrate she has been ambulating 10 feet at the most with minimal to moderate assistance for stand pivots and out of bed to a standing position. Our plan for her is to transfer to swing bed when she is stable, but the nausea has definitely slow things down today. OBJECTIVE: VITAL SIGNS: Temperature 98.1, pulse 90, respiratory rate 16 and nonlabored, O2 saturations 94% on room air, and blood pressure 147/70. GENERAL: She looks okay. She is alert and oriented to person, place, time, situation. Responsive with examiner and appropriate with examiner. Grossly nonfocal. EXTREMITIES: Visual inspection of the right lower extremity demonstrates no strikethrough. She has 5/5 strength in dorsiflexion. She is neurovascularly intact in the involved extremity. ABDOMEN: Benign, nontender, and nontympanic. Normoactive bowel sounds. LABORATORY DATA: Hemoglobin and hematocrit today are 13 and 39. IMPRESSION: 1. A 77-year-old female, postop day #3 right total knee arthroplasty. 2. Nausea with emesis. PLAN: 1. We will discontinue the [place]. 2. We will observe her overnight. I have no plans to transfer her while she is currently symptomatic from nausea. 3. We will observe her overnight and then probable transfer tomorrow. Job ID: [id number]
--- NOTE | 2018-05-28 13:10 | PRG ---
DATE OF SERVICE: 05/28/2018 SUBJECTIVE: Patient was seen and examined at bedside and overnight events noted. Patient denies any shortness of breath or chest pain or palpitation. No history of nausea or vomiting or diarrhea or fever or chills or cramps. OBJECTIVE: GENERAL: This is a well-built female, in no apparent distress. VITAL SIGNS: Temperature 98.1. Heart rate 90. Respiratory rate 18. Blood pressure 147/77. HEENT: Atraumatic, normocephalic. Oral mucosa is moist NECK: Supple. CARDIOVASCULAR: S1, S2 heard. Rate and rhythm regular. RESPIRATORY: Clear to auscultation. GASTROINTESTINAL: Abdomen is soft. MUSCULOSKELETAL: No tenderness. No edema. DERMATOLOGIC: No skin rash. NEUROLOGIC: Alert and awake and oriented X3. No focal neurologic deficits. Moving all the extremities. PSYCHIATRIC: Mood and affect normal. LABORATORY DATA: Sodium 135, potassium is 4.1, BUN is 17, and creatinine 1.09. ASSESSMENT AND PLAN: 1. Hyponatremia secondary to ascites, better. Currently, we will limit fluid intake. 2. Hypochloremia, stable. 3. Metabolic acidosis. 4. Edema. 5. Hypertension, stable. Sodium level is stable. Monitor closely. We will follow. Job ID: [id number]
--- NOTE | 2018-05-28 14:42 | PDOC.PN ---
- Subjective Encounter Start Date: 05/28/18 Encounter Start Time: 14:40 Subjective: had an episode of vomiting today and feels it is due to iron piils -: O/W feels better. still pain in operated knee -: working w PT - Objective MAR Reviewed: Yes Vital Signs & Weight: Vital Signs (12 hours) Temp Pulse Resp BP Pulse Ox 05/28/18 07:42 98.1 F 90 16 147/77 H 94 L 05/28/18 06:54 98.1 F 88 18 133/88 93 L Weight Admit Weight 198 lb Weight 198 lb I&O: 05/27/18 05/28/18 05/29/18 06:59 06:59 06:59 Intake Total 700 3130 Output Total 1900 5170 200 Balance -1200 -2040 -200 Result Diagrams: 05/28/18 03:59 05/28/18 03:59 Additional Labs: Microbiology 05/25/18 07:31 Urine friend catheter Urine Culture - Final NO GROWTH AT 48 HOURS 05/14/18 14:26 Mrsa Scrn Axilla,Groin,Nares Nasal Screen MRSA/MSSA - Final 05/14/18 14:26 Mrsa Scrn Axilla,Groin,Nares MRSA Screen - Final 05/25/18 07:31 Urine friend catheter Urine Culture - Preliminary NO GROWTH AT 24 HOURS Laboratory Tests 05/14/18 05/26/18 05/27/18 14:26 05:34 05:41 WBC 10.4 15.2 H 17.0 H Phys Exam - Physical Examination Constitutional: NAD HEENT: PERRLA, moist MMs, sclera anicteric, oral pharynx no lesions Neck: no nodes, no JVD, supple, full ROM Respiratory: no wheezing, no rales, no rhonchi, clear to auscultation bilateral Cardiovascular: RRR, no significant murmur, no rub Gastrointestinal: soft, non-tender, no distention, positive bowel sounds Musculoskeletal: no edema, pulses present Neurological: non-focal, normal sensation, moves all 4 limbs Psychiatric: normal affect, A&O x 3 Skin: no rash Dx/Plan (1) Hyponatremia Code(s): E87.1 - HYPO-OSMOLALITY AND HYPONATREMIA Status: Acute (2) Paroxysmal atrial fibrillation Code(s): I48.0 - PAROXYSMAL ATRIAL FIBRILLATION Status: Chronic Comment: NSR (3) Constipation Code(s): K59.00 - CONSTIPATION, UNSPECIFIED Status: Acute Comment: Postoperative plus narcotic related, worsened. Added daily miralax and citrucel which she uses at home. Daily stool softeners also added by Dr. Osorio. Ambulate/mobilize. (4) S/P CABG x 1 Code(s): Z95.1 - PRESENCE OF AORTOCORONARY BYPASS GRAFT Status: Chronic (5) Coronary arteriosclerosis in [place] artery Code(s): I25.10 - ATHSCL HEART DISEASE OF [place] CORONARY ARTERY W/O ANG PCTRS Status: Chronic Comment: Status post CABG, thus far doing well. PT/OT, mobilize as able. (6) Hyperlipidemia Code(s): E78.5 - HYPERLIPIDEMIA, UNSPECIFIED Status: Chronic Comment: Resume crestor. (7) Hypertension Code(s): I10 - ESSENTIAL (PRIMARY) HYPERTENSION Status: Chronic Comment: controlled (8) S/P total knee replacement Code(s): Z96.659 - PRESENCE OF UNSPECIFIED ARTIFICIAL KNEE JOINT Status: Acute Qualifiers: Laterality: right Qualified Code(s): Z96.651 - Presence of right artificial knee joint - Plan DVT proph w/SCDs sodium better.monitor -: DC feSO4.monitor -: cont PT,PT.meds as below -: HD stable -: OK to DC if no more vomiting * . Review of Systems - Review of Systems Constitutional: negative: fever, chills, sweats, weakness, malaise, other ENT: negative: Ear Pain, Ear Discharge, Nose Pain, Nose Discharge, Nose Congestion, Mouth Pain, Mouth Swelling, Throat Pain, Throat Swelling, Other Respiratory: negative: Cough, Dry, Shortness of Breath, Hemoptysis, SOB with Excertion, Pleuritic Pain, Sputum, Wheezing Cardiovascular: negative: chest pain, palpitations, orthopnea, paroxysmal nocturnal dyspnea, edema, light headedness, other Gastrointestinal: Nausea, Vomiting. negative: Abdominal Pain, Diarrhea, Constipation, Melena, Hematochezia, Other Genitourinary: negative: Dysuria, Frequency, Incontinence, Hematuria, Retention , Other Musculoskeletal: negative: Neck Pain, Shoulder Pain, Arm Pain, Back Pain, Hand Pain, Leg Pain, Foot Pain, Other Neurological: negative: Weakness, Numbness, Incoordination, Change in Speech, Confusion, Seizures, Other - Medications/Allergies Allergies/Adverse Reactions: Allergies Allergy/AdvReac Type Severity Reaction Status Date / Time Sulfa (Sulfonamide Allergy Severe Verified 05/14/18 13:17 Antibiotics) acetaminophen [From Tylenol] Allergy Verified 05/14/18 13:17 ciprofloxacin HCl Allergy Verified 05/14/18 13:17 [From Cipro] gabapentin [From Neurontin] Allergy Verified 05/14/18 13:17 ibuprofen Allergy use Verified 05/14/18 13:17 sparingly, causes kidney failure meperidine HCl [From Demerol] Allergy Verified 05/14/18 13:17 Penicillins Allergy Verified 05/14/18 13:17 pregabalin [From Lyrica] Allergy Verified 05/14/18 13:17 [id number]-Vqb Reductase Allergy Verified 05/14/18 13:17 Inhibitor sweeteners Allergy hypoglycemi Uncoded 05/14/18 13:17 c Medications: Current Medications Ascorbic Acid (Vitamin C) 1,000 mg PO DAILY [facility] Last Admin: 05/28/18 08:34 Dose: 1,000 mg Aspirin (Ecotrin) 81 mg PO BID [facility] Last Admin: 05/28/18 08:35 Dose: 81 mg Cholecalciferol (Vitamin D3) 1,000 units PO DAILY [facility] Last Admin: 05/28/18 08:34 Dose: 1,000 units Clonidine (Catapres) 0.1 mg PO Q4H PRN PRN Reason: SBP>160 Coenzyme Q10 (Coenzyme Q10) 200 mg PO DAILY [facility] Last Admin: 05/28/18 08:34 Dose: 200 mg Diphenhydramine HCl (Benadryl) 25 mg PO Q6H PRN PRN Reason: Itching Estradiol (Estrace) 0.5 mg PO MoTh@0900 [facility] Last Admin: 05/28/18 08:35 Dose: 0.5 mg Famotidine (Pepcid) 20 mg PO BID [facility] Last Admin: 05/28/18 08:34 Dose: 20 mg Fentanyl (Sublimaze) 50 mcg SLOW IVP Q1H PRN PRN Reason: breakthrough pain Last Admin: 05/25/18 12:07 Dose: 50 mcg Fentanyl (Sublimaze) 100 mcg SLOW IVP Q1H PRN PRN Reason: Severe Pain (7-10) Last Admin: 05/25/18 13:21 Dose: 100 mcg Fish Oil (Fish Oil) 1,000 mg PO HS [facility] Last Admin: 05/27/18 22:21 Dose: 1,000 mg Hydralazine HCl (Apresoline) 10 mg SLOW IVP Q4H PRN PRN Reason: SBP>170 Hydromorphone HCl (Dilaudid) 4 mg PO Q4H PRN PRN Reason: SEVERE Pain 7-10 Last Admin: 05/28/18 13:53 Dose: 4 mg Ropivacaine 250 ml/ Device 250 mls @ 10 mls/hr NERVE BLCK INF [facility] Last Admin: 05/27/18 22:55 Dose: 250 mls Iron/Minerals/Multivitamins (Theragran M) 1 tab PO DAILY [facility] Last Admin: 05/28/18 08:34 Dose: 1 tab Lisinopril (Zestril) 5 mg PO [facility] Last Admin: 05/27/18 22:22 Dose: 5 mg Loratadine (Claritin) 10 mg PO DAILY [facility] Last Admin: 05/28/18 08:34 Dose: 10 mg Metoprolol Succinate (Toprol Xl) 25 mg PO DAILY [facility] Last Admin: 05/28/18 08:35 Dose: 25 mg Ondansetron HCl (Zofran) 4 mg IVP Q6H PRN PRN Reason: Nausea/Vomiting Last Admin: 05/28/18 09:50 Dose: 4 mg Polyethylene Glycol (Miralax) 17 gm PO DAILY PRN PRN Reason: Constipation Last Admin: 05/28/18 08:34 Dose: 17 gm Promethazine HCl (Phenergan) 12.5 mg IM Q4H PRN PRN Reason: Nausea/Vomiting Rosuvastatin Calcium (Crestor) 10 mg PO HS [facility] Last Admin: 05/27/18 22:21 Dose: 10 mg Senna/Docusate Sodium (Senokot S) 2 tab PO BID [facility] Last Admin: 05/28/18 08:34 Dose: 2 tab Sodium Chloride (Flush - Normal Saline) 10 ml IVF PRN PRN PRN Reason: Saline Flush Thyroid ([place] Thyroid) 30 mg PO DAILY [facility] Last Admin: 05/28/18 09:27 Dose: 30 mg Tramadol HCl (Ultram) 50 mg PO Q6H PRN PRN Reason: Mild Pain (1-3) Tramadol HCl (Ultram) 100 mg PO Q6H PRN PRN Reason: Moderate Pain 4-6 Last Admin: 05/27/18 22:23 Dose: 100 mg Zolpidem Tartrate (Ambien) 5 mg PO HSPRN PRN PRN Reason: Insomnia
[2018-05-28] MEDS: Rosuvastatin 10 MG TAB PO SCH (19:59)
[2018-05-28] MEDS: Lisinopril 5 MG TAB PO SCH (19:59)
[2018-05-28] MEDS: Fish Oil 1,000 MG CAP PO SCH (19:59)
[2018-05-29] MEDS: HYDROmorphone 2 MG TAB PO PRN ×5 (02:05→20:31)
[2018-05-29] MEDS: traMADol HCl 50 MG TAB PO PRN ×2 (05:27→17:38)
[2018-05-29 07:09] LABS: Hemoglobin 13.1 g/dL (12.0-16.0); Mean Corpuscular HGB CONC 33.8 g/dL (32.0-36.0); Mean Corpuscular Volume 94.4 fL (78.0-98.0); Platelet Count 209 thou/uL (130-400); RBC Distribution Width 12.3 % (11.5-14.5); Red Blood Cell (RBC) Count 4.08 mill/uL (4.20-5.40); White Blood Cell (WBC) Count 11.8 thou/uL (4.8-10.8)
[2018-05-29 07:25] LABS: Anion Gap 10 mmol/L (10-20); BUN (Urea Nitrogen) 17 mg/dL (9.8-20.1); Calc. Creatinine Clearance 60 mL/min (70-130); Calcium 9.9 mg/dL (7.8-10.44); Carbon Dioxide 28 mmol/L (23-31); Chloride 99 mmol/L (98-107); Estimated GFR-MDRD 46; Glucose 114 mg/dL (83-110); Sodium 133 mmol/L (136-145)
[2018-05-29] MEDS: Ubidecarenone 50 MG CAP PO SCH (09:12)
[2018-05-29] MEDS: Polyethylene Glycol 3350 17 GM Packet PO PRN (09:12)
[2018-05-29] MEDS: Ascorbic Acid 500 mg Chewable Tablet PO SCH (09:13)
[2018-05-29] MEDS: Famotidine 20 MG TAB PO SCH ×2 (09:13→20:35)
[2018-05-29] MEDS: Senokot S 8.6-50 MG TAB PO SCH ×2 (09:13→20:34)
[2018-05-29] MEDS: Multivitamin W/ Minerals 1 TAB PO SCH (09:13)
[2018-05-29] MEDS: Aspirin 81 mg Enteric Coated Tablet PO SCH ×2 (09:13→20:35)
[2018-05-29] MEDS: Thyroid 30 MG TAB PO SCH (09:14)
[2018-05-29] MEDS: Loratadine 10 MG TAB PO SCH (09:14)
[2018-05-29] MEDS: Ondansetron PF 4 MG/2 ML Vial IVP PRN (09:51)
--- NOTE | 2018-05-29 18:53 | PRG ---
DATE OF SERVICE: 05/29/2018 SUBJECTIVE: Patient was seen and examined at bedside and overnight events noted. Patient denies any shortness of breath or chest pain or palpitation. No history of nausea or vomiting or diarrhea or fever or chills or cramps. OBJECTIVE: GENERAL: This is a well-built female in no apparent distress. VITAL SIGNS: Temperature . Blood pressure 152/77. HEENT: Atraumatic, normocephalic. Oral mucosa is moist NECK: Supple. CARDIOVASCULAR: S1, S2 heard. Rate and rhythm regular. RESPIRATORY: Clear to auscultation. GASTROINTESTINAL: Abdomen is soft. MUSCULOSKELETAL: No tenderness. No edema. DERMATOLOGIC: No skin rash. NEUROLOGIC: Alert and awake and oriented X3. No focal neurologic deficits. Moving all the extremities. PSYCHIATRIC: Mood and affect normal. LABORATORY DATA: Sodium is . ASSESSMENT AND PLAN: 1. Hyponatremia. Limit fluid intake. 2. Hypochloremia. 3. Metabolic acidosis. 4. Edema. 5. Ascites. Sodium stable. Limit fluid intake. Job ID: [id number]
[2018-05-29] MEDS: Lisinopril 5 MG TAB PO SCH (20:33)
[2018-05-29] MEDS: Rosuvastatin 10 MG TAB PO SCH (20:34)
[2018-05-29] MEDS: Fish Oil 1,000 MG CAP PO SCH (20:34)
[2018-05-30] MEDS: HYDROmorphone 2 MG TAB PO PRN ×5 (02:27→21:00)
[2018-05-30 05:00] LABS: Hemoglobin 12.6 g/dL (12.0-16.0); Mean Corpuscular HGB CONC 33.2 g/dL (32.0-36.0); Mean Corpuscular Hemoglobin 31.2 pg (27.0-31.0); Mean Corpuscular Volume 93.8 fL (78.0-98.0); Mean Platelet Volume 8.4 fL (7.4-10.4); Platelet Count 235 thou/uL (130-400); RBC Distribution Width 12.2 % (11.5-14.5); Red Blood Cell (RBC) Count 4.04 mill/uL (4.20-5.40); White Blood Cell (WBC) Count 10.8 thou/uL (4.8-10.8)
[2018-05-30] MEDS: traMADol HCl 50 MG TAB PO PRN ×2 (06:13→15:41)
[2018-05-30] MEDS: Loratadine 10 MG TAB PO SCH (08:41)
[2018-05-30] MEDS: Ubidecarenone 50 MG CAP PO SCH (08:41)
[2018-05-30] MEDS: Aspirin 81 mg Enteric Coated Tablet PO SCH ×2 (08:41→21:00)
[2018-05-30] MEDS: Ascorbic Acid 500 mg Chewable Tablet PO SCH (08:41)
[2018-05-30] MEDS: Senokot S 8.6-50 MG TAB PO SCH ×2 (08:41→21:00)
[2018-05-30] MEDS: Multivitamin W/ Minerals 1 TAB PO SCH (08:42)
[2018-05-30] MEDS: Famotidine 20 MG TAB PO SCH ×2 (08:42→21:00)
[2018-05-30] MEDS: Thyroid 30 MG TAB PO SCH (12:41)
--- NOTE | 2018-05-30 13:37 | PRG ---
DATE OF SERVICE: 05/30/2018 SUBJECTIVE: Alix is a 77-year-old white female, who is postop day 5 from a right total knee arthroplasty. There were some difficulties getting her transferred to a swing bed facility in [place], but currently she is convalescing very nicely here at [facility]. OBJECTIVE: VITAL SIGNS: Temperature 97.4, pulse 75, respiratory rate is 18, and blood pressure is 138/72. GENERAL: She is feeling very well. There is no nausea. NEUROLOGIC: Grossly nonfocal. Neurovascularly intact the involved extremity extremity, and there is no strike through. LABORATORY DATA: Hemoglobin and hematocrit are 12.6 and 37.9. IMPRESSION: A 77-year-old female, postop day 5, right total knee arthroplasty, doing well. PLAN: Continue current care and recheck tomorrow. Job ID: [id number]
--- NOTE | 2018-05-30 14:00 | PDOC.PN ---
- Subjective Encounter Start Date: 05/30/18 Encounter Start Time: 13:57 Subjective: pt was discharged yesterday but came back when [facility] refused to take her -: as she takes Po dilaudid as a home med and was on it at the time of DC -: this morning,she feels well & hope to "just go home" on Friday - Objective MAY Reviewed: Yes Vital Signs & Weight: Vital Signs (12 hours) Temp Pulse Resp BP BP Pulse Ox 05/30/18 11:04 97.4 F L 75 18 138/72 94 L 05/30/18 08:00 94 L 05/30/18 07:05 98.3 F 63 16 163/78 H 94 L 05/30/18 04:00 98.4 F 73 16 160/86 H 91 L Weight Admit Weight 198 lb Weight 198 lb I&O: 05/29/18 05/30/18 05/31/18 06:59 06:59 06:59 Intake Total 3450 1700 Output Total 200 Balance 3250 1700 Result Diagrams: 05/30/18 04:04 05/29/18 06:40 Phys Exam - Physical Examination Constitutional: NAD HEENT: PERRLA, moist MMs, sclera anicteric, oral pharynx no lesions Neck: no nodes, no JVD, supple, full ROM Respiratory: no wheezing, no rales, no rhonchi, clear to auscultation bilateral Cardiovascular: RRR, no significant murmur, no rub Gastrointestinal: soft, non-tender, no distention, positive bowel sounds Musculoskeletal: no edema, pulses present Neurological: non-focal, normal sensation, moves all 4 limbs Psychiatric: normal affect, A&O x 3 Skin: no rash Dx/Plan (1) Hyponatremia Code(s): E87.1 - HYPO-OSMOLALITY AND HYPONATREMIA Status: Acute (2) Paroxysmal atrial fibrillation Code(s): I48.0 - PAROXYSMAL ATRIAL FIBRILLATION Status: Chronic Comment: NSR (3) Constipation Code(s): K59.00 - CONSTIPATION, UNSPECIFIED Status: Acute Comment: Postoperative plus narcotic related, worsened. Added daily miralax and citrucel which she uses at home. Daily stool softeners also added by Dr. Osorio. Ambulate/mobilize. (4) S/P CABG x 1 Code(s): Z95.1 - PRESENCE OF AORTOCORONARY BYPASS GRAFT Status: Chronic (5) Coronary arteriosclerosis in [place] artery Code(s): I25.10 - ATHSCL HEART DISEASE OF [place] CORONARY ARTERY W/O ANG PCTRS Status: Chronic Comment: Status post CABG, thus far doing well. PT/OT, mobilize as able. (6) Hyperlipidemia Code(s): E78.5 - HYPERLIPIDEMIA, UNSPECIFIED Status: Chronic Comment: Resume crestor. (7) Hypertension Code(s): I10 - ESSENTIAL (PRIMARY) HYPERTENSION Status: Chronic Comment: controlled (8) S/P total knee replacement Code(s): Z96.659 - PRESENCE OF UNSPECIFIED ARTIFICIAL KNEE JOINT Status: Acute Qualifiers: Laterality: right Qualified Code(s): Z96.651 - Presence of right artificial knee joint - Plan plan discussed w/ family, DVT proph w/SCDs IM team will follow -: HD stable -: Recheck sodium in am .was improving -: cont home meds as below * . Review of Systems - Review of Systems Constitutional: negative: fever, chills, sweats, weakness, malaise, other Respiratory: negative: Cough, Dry, Shortness of Breath, Hemoptysis, SOB with Excertion, Pleuritic Pain, Sputum, Wheezing Cardiovascular: negative: chest pain, palpitations, orthopnea, paroxysmal nocturnal dyspnea, edema, light headedness, other Gastrointestinal: negative: Nausea, Vomiting, Abdominal Pain, Diarrhea, Constipation, Melena, Hematochezia, Other Genitourinary: negative: Dysuria, Frequency, Incontinence, Hematuria, Retention , Other Musculoskeletal: negative: Neck Pain, Shoulder Pain, Arm Pain, Back Pain, Hand Pain, Leg Pain, Foot Pain, Other Neurological: negative: Weakness, Numbness, Incoordination, Change in Speech, Confusion, Seizures, Other - Medications/Allergies Allergies/Adverse Reactions: Allergies Allergy/AdvReac Type Severity Reaction Status Date / Time Sulfa (Sulfonamide Allergy Severe Verified 05/14/18 13:17 Antibiotics) acetaminophen [From Tylenol] Allergy Verified 05/14/18 13:17 ciprofloxacin HCl Allergy Verified 05/14/18 13:17 [From Cipro] gabapentin [From Neurontin] Allergy Verified 05/14/18 13:17 ibuprofen Allergy use Verified 05/14/18 13:17 sparingly, causes kidney failure meperidine HCl [From Demerol] Allergy Verified 05/14/18 13:17 Penicillins Allergy Verified 05/14/18 13:17 pregabalin [From Lyrica] Allergy Verified 05/14/18 13:17 Mzimyju-Pzs-Vzj Reductase Allergy Verified 05/14/18 13:17 Inhibitor sweeteners Allergy hypoglycemi Uncoded 05/14/18 13:17 c Medications: Current Medications Ascorbic Acid (Vitamin C) 1,000 mg PO DAILY [facility] Last Admin: 05/30/18 08:41 Dose: 1,000 mg Aspirin (Ecotrin) 81 mg PO BID [facility] Last Admin: 05/30/18 08:41 Dose: 81 mg Cholecalciferol (Vitamin D3) 1,000 units PO DAILY [facility] Last Admin: 05/30/18 08:41 Dose: 1,000 units Clonidine (Catapres) 0.1 mg PO Q4H PRN PRN Reason: SBP>160 Coenzyme Q10 (Coenzyme Q10) 200 mg PO DAILY [facility] Last Admin: 05/30/18 08:41 Dose: 200 mg Diphenhydramine HCl (Benadryl) 25 mg PO Q6H PRN PRN Reason: Itching Estradiol (Estrace) 0.5 mg PO MoTh@0900 [facility] Last Admin: 05/28/18 08:35 Dose: 0.5 mg Famotidine (Pepcid) 20 mg PO BID [facility] Last Admin: 05/30/18 08:42 Dose: 20 mg Fentanyl (Sublimaze) 50 mcg SLOW IVP Q1H PRN PRN Reason: breakthrough pain Last Admin: 05/25/18 12:07 Dose: 50 mcg Fentanyl (Sublimaze) 100 mcg SLOW IVP Q1H PRN PRN Reason: Severe Pain (7-10) Last Admin: 05/25/18 13:21 Dose: 100 mcg Fish Oil (Fish Oil) 1,000 mg PO HS [facility] Last Admin: 05/29/18 20:34 Dose: 1,000 mg Hydralazine HCl (Apresoline) 10 mg SLOW IVP Q4H PRN PRN Reason: SBP>170 Hydromorphone HCl (Dilaudid) 4 mg PO Q4H PRN PRN Reason: SEVERE Pain 7-10 Last Admin: 05/30/18 12:38 Dose: 4 mg Ropivacaine 250 ml/ Device 250 mls @ 10 mls/hr NERVE BLCK INF [facility] Last Admin: 05/27/18 22:55 Dose: 250 mls Iron/Minerals/Multivitamins (Theragran M) 1 tab PO DAILY [facility] Last Admin: 05/30/18 08:42 Dose: 1 tab Lisinopril (Zestril) 5 mg PO HS [facility] Last Admin: 05/29/18 20:33 Dose: 5 mg Loratadine (Claritin) 10 mg PO DAILY [facility] Last Admin: 05/30/18 08:41 Dose: 10 mg Metoprolol Succinate (Toprol Xl) 25 mg PO DAILY [facility] Last Admin: 05/30/18 08:42 Dose: 25 mg Ondansetron HCl (Zofran) 4 mg IVP Q6H PRN PRN Reason: Nausea/Vomiting Last Admin: 05/29/18 09:51 Dose: 4 mg Polyethylene Glycol (Miralax) 17 gm PO DAILY PRN PRN Reason: Constipation Last Admin: 05/29/18 09:12 Dose: 17 gm Promethazine HCl (Phenergan) 12.5 mg IM Q4H PRN PRN Reason: Nausea/Vomiting Rosuvastatin Calcium (Crestor) 10 mg PO HS [facility] Last Admin: 05/29/18 20:34 Dose: 10 mg Senna/Docusate Sodium (Senokot S) 2 tab PO BID [facility] Last Admin: 05/30/18 08:41 Dose: 2 tab Sodium Chloride (Flush - Normal Saline) 10 ml IVF PRN PRN PRN Reason: Saline Flush Thyroid ([place] Thyroid) 30 mg PO DAILY [facility] Last Admin: 05/30/18 12:41 Dose: Not Given Tramadol HCl (Ultram) 50 mg PO Q6H PRN PRN Reason: Mild Pain (1-3) Tramadol HCl (Ultram) 100 mg PO Q6H PRN PRN Reason: Moderate Pain 4-6 Last Admin: 05/30/18 06:13 Dose: 100 mg Zolpidem Tartrate (Ambien) 5 mg PO HSPRN PRN PRN Reason: Insomnia
--- NOTE | 2018-05-30 14:48 | PRG ---
DATE OF SERVICE: 05/30/2018 SUBJECTIVE: Patient was seen and examined at bedside and overnight events noted. Patient denies any shortness of breath or chest pain or palpitation. No history of nausea or vomiting or diarrhea or fever or chills or cramps. OBJECTIVE: GENERAL: This is an obese female in no apparent distress. VITAL SIGNS: Temperature 97.5. Heart rate 75. Respiratory rate 18. Blood pressure 138/72. HEENT: Atraumatic, normocephalic. Oral mucosa is moist NECK: Supple. CARDIOVASCULAR: S1, S2 heard. Rate and rhythm regular. RESPIRATORY: Clear to auscultation. GASTROINTESTINAL: Abdomen is soft. MUSCULOSKELETAL: No tenderness. No edema. DERMATOLOGIC: No skin rash. NEUROLOGIC: Alert and awake and oriented X3. No focal neurologic deficits. Moving all the extremities. PSYCHIATRIC: Mood and affect normal. LABORATORY DATA: Potassium is 4.0, sodium is 133. ASSESSMENT AND PLAN: 1. Hyponatremia. Limit fluid intake. Recheck labs. 2. Hypochloremia, stable. 3. Edema. 4. Hypertension. Limit fluid intake. We will follow. Job ID: [id number]
[2018-05-30] MEDS: Lisinopril 5 MG TAB PO SCH (20:59)
[2018-05-30] MEDS: Fish Oil 1,000 MG CAP PO SCH (21:00)
[2018-05-30] MEDS: Rosuvastatin 10 MG TAB PO SCH (21:00)
[2018-05-31] MEDS: traMADol HCl 50 MG TAB PO PRN (00:03)
[2018-05-31] MEDS: HYDROmorphone 2 MG TAB PO PRN ×2 (05:28→10:07)
[2018-05-31] MEDS: Ubidecarenone 50 MG CAP PO SCH (09:00)
[2018-05-31] MEDS: Aspirin 81 mg Enteric Coated Tablet PO SCH (09:01)
[2018-05-31] MEDS: Multivitamin W/ Minerals 1 TAB PO SCH (09:01)
[2018-05-31] MEDS: Famotidine 20 MG TAB PO SCH (09:01)
[2018-05-31] MEDS: Senokot S 8.6-50 MG TAB PO SCH (09:01)
[2018-05-31] MEDS: Ascorbic Acid 500 mg Chewable Tablet PO SCH (09:01)
[2018-05-31] MEDS: Loratadine 10 MG TAB PO SCH (09:01)
[2018-05-31] MEDS: Thyroid 30 MG TAB PO SCH (09:02)
[2018-05-31] MEDS: Polyethylene Glycol 3350 17 GM Packet PO PRN (09:07)
[2018-05-31 09:17] LABS: Anion Gap 9 mmol/L (10-20); BUN (Urea Nitrogen) 16 mg/dL (9.8-20.1); Calc. Creatinine Clearance 60 mL/min (70-130); Calcium 10.1 mg/dL (7.8-10.44); Carbon Dioxide 30 mmol/L (23-31); Chloride 99 mmol/L (98-107); Estimated GFR-MDRD 47; Glucose 127 mg/dL (83-110); Potassium 4.2 mmol/L (3.5-5.1); Sodium 134 mmol/L (136-145)
[2018-05-31 12:42] VITALS: BP 159/61; TEMP 98.2
--- NOTE | 2018-05-31 13:13 | PDOC.PN ---
- Subjective Encounter Start Date: 05/31/18 Encounter Start Time: 13:12 Subjective: feels great and no new complaints - Objective MAR Reviewed: Yes Vital Signs & Weight: Vital Signs (12 hours) Temp Pulse Resp BP BP Pulse Ox 05/31/18 12:31 98.2 F 71 16 159/61 H 94 L 05/31/18 08:00 94 L 05/31/18 07:47 98.5 F 74 18 175/79 H 94 L 05/31/18 04:00 97.6 F 77 16 163/93 H 93 L Weight Admit Weight 198 lb Weight 198 lb I&O: 05/30/18 05/31/18 06/01/18 06:59 06:59 06:59 Intake Total 1700 720 Balance 1700 720 Result Diagrams: 05/30/18 04:04 05/31/18 08:45 Additional Labs: Laboratory Tests 05/26/18 05/27/18 05/27/18 05:34 05:41 14:16 Sodium 124 L 132 L 134 L 05/29/18 05/31/18 06:40 08:45 Sodium 133 L 134 L Phys Exam - Physical Examination Constitutional: NAD HEENT: PERRLA, moist MMs, sclera anicteric, oral pharynx no lesions Neck: no nodes, no JVD, supple, full ROM Respiratory: no wheezing, no rales, no rhonchi, clear to auscultation bilateral Cardiovascular: RRR, no significant murmur Gastrointestinal: soft, non-tender, no distention, positive bowel sounds Musculoskeletal: no edema, pulses present Neurological: non-focal, normal sensation, moves all 4 limbs Psychiatric: normal affect, A&O x 3 Skin: no rash Dx/Plan (1) Hyponatremia Code(s): E87.1 - HYPO-OSMOLALITY AND HYPONATREMIA Status: Acute Comment: improved (2) Paroxysmal atrial fibrillation Code(s): I48.0 - PAROXYSMAL ATRIAL FIBRILLATION Status: Chronic Comment: NSR (3) Constipation Code(s): K59.00 - CONSTIPATION, UNSPECIFIED Status: Acute Comment: Postoperative plus narcotic related, worsened. Added daily miralax and citrucel which she uses at home. Daily stool softeners also added by Dr. Osorio. Ambulate/mobilize. (4) S/P CABG x 1 Code(s): Z95.1 - PRESENCE OF AORTOCORONARY BYPASS GRAFT Status: Chronic (5) Coronary arteriosclerosis in [place] artery Code(s): I25.10 - ATHSCL HEART DISEASE OF [place] CORONARY ARTERY W/O ANG PCTRS Status: Chronic Comment: Status post CABG, thus far doing well. PT/OT, mobilize as able. (6) Hyperlipidemia Code(s): E78.5 - HYPERLIPIDEMIA, UNSPECIFIED Status: Chronic Comment: Resume crestor. (7) Hypertension Code(s): I10 - ESSENTIAL (PRIMARY) HYPERTENSION Status: Chronic Comment: controlled (8) S/P total knee replacement Code(s): Z96.659 - PRESENCE OF UNSPECIFIED ARTIFICIAL KNEE JOINT Status: Acute Qualifiers: Laterality: right Qualified Code(s): Z96.651 - Presence of right artificial knee joint - Plan plan discussed w/ family, DVT proph w/SCDs Ok to DC -: OP labs w results to PCP or nephrology in 1-2 weeks * . Review of Systems - Review of Systems Constitutional: negative: fever, chills, sweats, weakness, malaise, other ENT: negative: Ear Pain, Ear Discharge, Nose Pain, Nose Discharge, Nose Congestion, Mouth Pain, Mouth Swelling, Throat Pain, Throat Swelling, Other Respiratory: negative: Cough, Dry, Shortness of Breath, Hemoptysis, SOB with Excertion, Pleuritic Pain, Sputum, Wheezing Cardiovascular: negative: chest pain, palpitations, orthopnea, paroxysmal nocturnal dyspnea, edema, light headedness, other Gastrointestinal: negative: Nausea, Vomiting, Abdominal Pain, Diarrhea, Constipation, Melena, Hematochezia, Other Genitourinary: negative: Dysuria, Frequency, Incontinence, Hematuria, Retention , Other Neurological: negative: Weakness, Numbness, Incoordination, Change in Speech, Confusion, Seizures, Other - Medications/Allergies Allergies/Adverse Reactions: Allergies Allergy/AdvReac Type Severity Reaction Status Date / Time Sulfa (Sulfonamide Allergy Severe Verified 05/14/18 13:17 Antibiotics) acetaminophen [From Tylenol] Allergy Verified 05/14/18 13:17 ciprofloxacin HCl Allergy Verified 05/14/18 13:17 [From Cipro] gabapentin [From Neurontin] Allergy Verified 05/14/18 13:17 ibuprofen Allergy use Verified 05/14/18 13:17 sparingly, causes kidney failure meperidine HCl [From Demerol] Allergy Verified 05/14/18 13:17 Penicillins Allergy Verified 05/14/18 13:17 pregabalin [From Lyrica] Allergy Verified 05/14/18 13:17 [id number]-[id number]-Gyh Reductase Allergy Verified 05/14/18 13:17 Inhibitor sweeteners Allergy hypoglycemi Uncoded 05/14/18 13:17 c Medications: Current Medications Ascorbic Acid (Vitamin C) 1,000 mg PO DAILY [facility] Last Admin: 05/31/18 09:01 Dose: 1,000 mg Aspirin (Ecotrin) 81 mg PO BID [facility] Last Admin: 05/31/18 09:01 Dose: 81 mg Cholecalciferol (Vitamin D3) 1,000 units PO DAILY [facility] Last Admin: 05/31/18 09:01 Dose: 1,000 units Clonidine (Catapres) 0.1 mg PO Q4H PRN PRN Reason: SBP>160 Coenzyme Q10 (Coenzyme Q10) 200 mg PO DAILY [facility] Last Admin: 05/31/18 09:00 Dose: 200 mg Diphenhydramine HCl (Benadryl) 25 mg PO Q6H PRN PRN Reason: Itching Estradiol (Estrace) 0.5 mg PO MoTh@0900 [facility] Last Admin: 05/28/18 08:35 Dose: 0.5 mg Famotidine (Pepcid) 20 mg PO BID [facility] Last Admin: 05/31/18 09:01 Dose: 20 mg Fentanyl (Sublimaze) 50 mcg SLOW IVP Q1H PRN PRN Reason: breakthrough pain Last Admin: 05/25/18 12:07 Dose: 50 mcg Fentanyl (Sublimaze) 100 mcg SLOW IVP Q1H PRN PRN Reason: Severe Pain (7-10) Last Admin: 05/25/18 13:21 Dose: 100 mcg Fish Oil (Fish Oil) 1,000 mg PO HS [facility] Last Admin: 05/30/18 21:00 Dose: 1,000 mg Hydralazine HCl (Apresoline) 10 mg SLOW IVP Q4H PRN PRN Reason: SBP>170 Hydromorphone HCl (Dilaudid) 4 mg PO Q4H PRN PRN Reason: SEVERE Pain 7-10 Last Admin: 05/31/18 10:07 Dose: 4 mg Ropivacaine 250 ml/ Device 250 mls @ 10 mls/hr NERVE BLCK INF [facility] Last Admin: 05/27/18 22:55 Dose: 250 mls Iron/Minerals/Multivitamins (Theragran M) 1 tab PO DAILY [facility] Last Admin: 05/31/18 09:01 Dose: 1 tab Lisinopril (Zestril) 5 mg PO HS [facility] Last Admin: 05/30/18 20:59 Dose: 5 mg Loratadine (Claritin) 10 mg PO DAILY [facility] Last Admin: 05/31/18 09:01 Dose: 10 mg Metoprolol Succinate (Toprol Xl) 25 mg PO DAILY [facility] Last Admin: 05/31/18 09:01 Dose: 25 mg Ondansetron HCl (Zofran) 4 mg IVP Q6H PRN PRN Reason: Nausea/Vomiting Last Admin: 05/29/18 09:51 Dose: 4 mg Polyethylene Glycol (Miralax) 17 gm PO DAILY PRN PRN Reason: Constipation Last Admin: 05/31/18 09:07 Dose: 17 gm Promethazine HCl (Phenergan) 12.5 mg IM Q4H PRN PRN Reason: Nausea/Vomiting Rosuvastatin Calcium (Crestor) 10 mg PO HS [facility] Last Admin: 05/30/18 21:00 Dose: 10 mg Senna/Docusate Sodium (Senokot S) 2 tab PO BID [facility] Last Admin: 05/31/18 09:01 Dose: 2 tab Sodium Chloride (Flush - Normal Saline) 10 ml IVF PRN PRN PRN Reason: Saline Flush Thyroid ([place] Thyroid) 30 mg PO DAILY [facility] Last Admin: 05/31/18 09:02 Dose: 30 mg Tramadol HCl (Ultram) 50 mg PO Q6H PRN PRN Reason: Mild Pain (1-3) Tramadol HCl (Ultram) 100 mg PO Q6H PRN PRN Reason: Moderate Pain 4-6 Last Admin: 05/31/18 00:03 Dose: 100 mg Zolpidem Tartrate (Ambien) 5 mg PO HSPRN PRN PRN Reason: Insomnia
--- NOTE | 2018-05-31 20:46 | PRG ---
DATE OF SERVICE: 05/31/2018 SUBJECTIVE: Patient was seen and examined at bedside and overnight events noted. Patient denies any shortness of breath or chest pain or palpitation. No history of nausea or vomiting or diarrhea or fever or chills or cramps. OBJECTIVE: GENERAL: This is an obese female, in no apparent distress. VITAL SIGNS: Temperature 99.2. Heart rate 71. Respiratory rate 16. Blood pressure 159/61. HEENT: Atraumatic, normocephalic. Oral mucosa is moist NECK: Supple. CARDIOVASCULAR: S1, S2 heard. Rate and rhythm regular. RESPIRATORY: Clear to auscultation. GASTROINTESTINAL: Abdomen is soft. MUSCULOSKELETAL: No tenderness. No edema. DERMATOLOGIC: No skin rash. NEUROLOGIC: Alert and awake and oriented X3. No focal neurologic deficits. Moving all the extremities. PSYCHIATRIC: Mood and affect normal. LABORATORY DATA: Sodium is 134, potassium is 4.2, and creatinine is 1.1. ASSESSMENT AND PLAN: 1. Hyponatremia. Limit fluid intake. 2. Hypochloremia. 3. Edema. 4. Hypertension. Limit fluid intake. Job ID: [id number]
--- NOTE | 2018-06-01 17:36 | EKG ---
Test Reason : Blood Pressure : / mmHG Vent. Rate : 077 BPM Atrial Rate : 077 BPM P-R Int : 152 ms QRS Dur : 088 ms QT Int : 364 ms P-R-T Axes : 045 024 023 degrees QTc Int : 411 ms Normal sinus rhythm with sinus arrhythmia Normal ECG When compared with ECG of 14-MAY-2018 14:17, No significant change was found Confirmed by DR. Cruzito RODRIGUEZ ([id number]) on 06/01/2018 5:36:02 PM Referred By: JUAN Confirmed By:DR. Cruzito RODRIGUEZ
== END 2018-05-31 13:20 | disposition home or self-care (01) | DRG 470 ==
LOC: SDC 05:34 → SJJU 07:20
PROVIDERS: ADMIT Orthopaedic Surgery; ATTEND Orthopaedic Surgery
PROC: 0SRC069 Replacement of Right Knee Joint with Oxidized Zirconium on Polyethylene Synthetic Substitute, Cemented, Open Approach (ICD-10-PCS; principal; 2018-05-25)
PROC: 3E0T3BZ Introduction of Anesthetic Agent into Peripheral Nerves and Plexi, Percutaneous Approach (ICD-10-PCS; 2018-05-26)
DX: M17.11 Unilateral primary osteoarthritis, right knee (principal); E87.1 Hypo-osmolality and hyponatremia; E87.2 Acidosis; R18.8 Other ascites; I25.10 Atherosclerotic heart disease of native coronary artery without angina pectoris; E03.9 Hypothyroidism, unspecified; I10 Essential (primary) hypertension; E78.5 Hyperlipidemia, unspecified; I48.0 Paroxysmal atrial fibrillation; G89.29 Other chronic pain; M54.9 Dorsalgia, unspecified; E87.8 Other disorders of electrolyte and fluid balance, not elsewhere classified; E66.9 Obesity, unspecified; Z68.39 Body mass index [BMI] 39.0-39.9, adult; K59.03 Drug induced constipation; T40.605A Adverse effect of unspecified narcotics, initial encounter; D72.829 Elevated white blood cell count, unspecified; Y92.230 Patient room in hospital as the place of occurrence of the external cause; Z79.899 Other long term (current) drug therapy; Z88.2 Allergy status to sulfonamides; Z88.1 Allergy status to other antibiotic agents; Z88.8 Allergy status to other drugs, medicaments and biological substances; Z88.0 Allergy status to penicillin; Z95.1 Presence of aortocoronary bypass graft
CPT/HCPCS: 36415; 71045; 80048; 81003; 83930; 83935; 84300; 85027; 86850; 86900; 86901; 87040; 87086; 93005; 93010; C1713; C1776; J1170; J2001; J2250; J2405; J2704; J2795; J3010; J3370; J3490; J7050; S0020

== ENCOUNTER 2022-05-22 13:01 | Outpatient (CLI) | payer MEDICARE | END 2022-05-22 13:02 | disposition home or self-care (01) | LOC: SCSMRI 13:01 | PROVIDERS: ATTEND Nurse Practitioner Family | DX: M54.6 Pain in thoracic spine (principal); M54.14 Radiculopathy, thoracic region; M47.812 Spondylosis without myelopathy or radiculopathy, cervical region; M47.816 Spondylosis without myelopathy or radiculopathy, lumbar region | CPT/HCPCS: 72146 ==

== ENCOUNTER 2023-03-23 05:31 | Emergency (ER) | payer MEDICARE ==
[2023-03-23 06:48] LABS: #Basophils 0.1 thou/uL (0.0-0.2); #Eosinphils 0.8 thou/uL (0.0-0.7); #Monocytes 0.8 thou/uL (0.11-0.59); #Neutrophils 5.4 thou/uL (1.40-6.50); %Eosinophils 9.2 % (0.0-10.0); %Lymphocytes 21.3 % (21.0-51.0); %Monocytes 8.5 % (0.0-10.0); %Neutrophils 59.6 % (42.0-75.0); Hematocrit 37.3 % (36.0-47.0); Hemoglobin 12.2 g/dL (12.0-16.0); Mean Corpuscular HGB CONC 32.7 g/dL (32.0-36.0); Mean Corpuscular Hemoglobin 32.4 pg (27.0-31.0); Mean Corpuscular Volume 98.9 fl (78.0-98.0); Mean Platelet Volume 10.7 fL (7.4-10.4); Platelet Count 142 10x3/uL (130-400); RBC Distribution Width 13.7 % (11.5-14.5); Red Blood Cell (RBC) Count 3.77 mill/uL (4.20-5.40)
[2023-03-23 07:12] LABS: ALT (SGPT) 18 U/L (8-55); AST (SGOT) 29 U/L (5-34); Albumin 3.6 g/dL (3.4-4.8); Alkaline Phosphatase 70 U/L (40-110); Anion Gap 12 mmol/L (10-20); BUN (Urea Nitrogen) 21 mg/dL (9.8-20.1); Bilirubin, Total 0.5 mg/dL (0.2-1.2); Calc. Creatinine Clearance 0 mL/min (70-130); Calcium 9.7 mg/dL (7.8-10.44); Carbon Dioxide 21 mmol/L (23-31); Chloride 109 mmol/L (98-107); Estimated GFR 49; Globulin 2.7 g/dL (2.4-3.5); Glucose 92 mg/dL (83-110); Magnesium 1.4 mg/dL (1.6-2.6); Potassium 5.2 mmol/L (3.5-5.1); Protein, Total 6.3 g/dL (5.8-8.1); Sodium 137 mmol/L (136-145)
[2023-03-23 07:16] LABS: Troponin I Less than 0.010 ng/mL (< 0.028)
== END 2023-03-23 07:40 | disposition home or self-care (01) ==
LOC: ERS 05:31
DX: I48.91 Unspecified atrial fibrillation (principal); E03.9 Hypothyroidism, unspecified; E78.5 Hyperlipidemia, unspecified; I10 Essential (primary) hypertension; Z87.891 Personal history of nicotine dependence; Z79.899 Other long term (current) drug therapy
CPT/HCPCS: 36415; 71045; 80053; 83735; 84484; 85025; 93005